=== PATIENT | male | born 1955 | race Caucasian/White ===

== ENCOUNTER 2017-01-05 20:22 | Observation (INO) | payer OTHER ==
--- NOTE | ~2017-01-05 | CN ---
Consultation Report [facility] [address] [place]. [address] NAME: SENDY JOSE : 53 STATUS : ADM Beatriz PAT#: [id number] AGE: 61 ADM/REG DATE : 01/05/17 MR#: [id number] REPORT SERV DATE: 01/06/17 DICTATED BY: CLEMENTINA DUGAN DATE: 01/06/17 REPORT STATUS : Draft TRANSCRIBED BY: LUCAS DATE: 01/06/17 CARDIOLOGY CONSULT DATE OF CONSULTATION: REFERRING PHYSICIAN: Mrs. Avani Queen, nurse-practitioner with Dr. Peñaloza, Nephrology service. REFERRING REASON: Atrial flutter and elevated troponin. HISTORY OF PRESENT ILLNESS: This is a pleasant 61-year-old white obese gentleman with complex past medical history, well known to Dr. Jair Mejia from [facility] who has actually seen Jona Case, nurse practitioner working with Dr. Mejia on 12/24/2016. He has been admitted to Nephrology Service from the emergency room yesterday for influenza A and atrial flutter which was discovered incidentally by primary care physician in the office. The patient reportedly suffered a respiratory infection and cough 3 weeks ago, was treated with 1 dose of antibiotics. He improved and got some low-grade fever, chills, and was feeling weak again. He decided to see the primary care physician who checked electrocardiogram which revealed atrial flutter, variable AV block with chronic right bundle branch block and heart rate in the 70s. He has been referred to the emergency room and was admitted to the nephrology Service. He was found to have an influenza A. His first troponin was mildly elevated at 0.14. The patient specifically denies any exertional or resting chest pain. He has some mild dyspnea on exertion over the last month but has chronic ischemic cardiomyopathy with EF 37% which was discovered by echocardiogram in October 2016. He is a vasculopath with history of right femoropopliteal bypass surgery by Dr. Gray years ago with right carotid endarterectomy in 2001 and he also has a history of kidney transplant in 2004. The patient has a history of a fall 3 weeks ago on his back when he fell from the back and obtained hematoma in the back. He reportedly recovered well. He denied any syncope or palpitations. He denied lower extremity edema. The dose of Coreg has been recently increased at the [facility] office to 6.25 mg twice a day and has been tolerating it well. His blood pressure reportedly has been stable. The patient is insisting on a dismissal from hospital. This has been also supported by the Nephrology Service while he reportedly is completely asymptomatic now. The 2nd troponin was not obtained. The patient remained hemodynamically stable with systolic blood pressure in the 140s and heart rate in the 60s, on some of the recording looks like atrial fibrillation. No signs of external bleeding. The rest of the review of systems is negative. PAST MEDICAL HISTORY: 1. Ischemic cardiomyopathy with EF declining to 37% by echo in October 2016 with left atrial enlargement, mild aortic valve stenosis, and moderate pulmonary hypertension. 2. Coronary artery disease with history of CABG in 2004. 3. Status post right carotid endarterectomy in 2001. Consultation Report [address] [place]. [address] NAME: SENDY JOSE : 53 STATUS : ADM Beatriz PAT#: [id number] AGE: 61 ADM/REG DATE : 01/05/17 MR#: [id number] REPORT SERV DATE: 01/06/17 DICTATED BY: CLEMENTINA DUGAN DATE: 01/06/17 REPORT STATUS : Draft TRANSCRIBED BY: LUCAS DATE: 01/06/17 4. Chronic left bundle-branch block on electrocardiogram. 5. Tendency to hypotension and bradycardia on a high dose of Coreg and lisinopril, currently off lisinopril. 6. Hypertension. 7. Hyperlipidemia. 8. Diabetes mellitus. 9. History of kidney transplant in 2004. 10.History of peripheral artery disease with right femoropopliteal bypass surgery by Dr. Gray in the past. 11.History of negative nuclear cardiac stress test for ischemia in October 2016. 12.Status post fall 3 weeks ago. 13.Currently influenza A. ALLERGIES: SULFA. HOME MEDICATIONS: Allopurinol 100 mg twice a day; aspirin 325 mg once a day; clonidine 0.3 mg p.r.n. and he is also taking 0.3 mg every 24 hours patch of clonidine; Plavix 75 mg once a day; cyclosporine 100 mg once a day; Vytorin 10/20 mg once a day; iron supplement; Lasix 80 mg once a day; insulin p.r.n.; potassium supplement 20 mEq once a day; Lyrica 75 mg once a day; Requip 1 mg once a day; and Coreg 6.25 mg twice a day. SOCIAL HISTORY: The patient is . He is a senior construction manager. Denies smoking, drinking alcohol, or using street drugs. FAMILY HISTORY: Negative for sudden cardiac or premature coronary artery disease in the family. PHYSICAL EXAMINATION: GENERAL: No acute distress, comfortably sitting on a bed, in no acute distress. VITAL SIGNS: Blood pressure 142/82, heart rate 59 and regular. LUNGS: Decreased breath sounds, bibasilar, but no crackles. ABDOMEN: Obese, distended, nontender. EXTREMITIES: Lower extremities with decreased pedal pulses bilaterally, but no edema. SKIN: There is mild hematoma along his spine in the lumbar spine and the left flank from the fall 3 weeks ago per the patient's report. HEENT: Pupils reactive to light and accommodation. Moist mucosa membrane. NECK: No JVD. Normal carotid upstroke. No carotid bruits. COR: Normal S1, S2. No S3 or S4. No significant rub or murmurs. SKIN: Warm with normal turgor. MUSCULOSKELETAL: No kyphosis. NEURO/PSY: Alert and oriented. Nonfocal. DATA: CBC remarkable for hemoglobin 12 and platelet count 117,000. BUN 62, creatinine 1.7. Troponin 0.14 x 1. Influenza A positive. Brain natriuretic peptide 749. Chest x-ray, status post CABG, no signs of fluid overload. Electrocardiogram revealed atrial flutter 71 Consultation Report [address] [address] NAME: SENDY JOSE : 53 STATUS : ADM Beatriz PAT#: [id number] AGE: 61 ADM/REG DATE : 01/05/17 MR#: [id number] REPORT SERV DATE: 01/06/17 DICTATED BY: CLEMENTINA DUGAN DATE: 01/06/17 REPORT STATUS : Draft TRANSCRIBED BY: LUCAS DATE: 01/06/17 beats per minute with variable AV block, chronic right bundle-branch block. On monitor, he looks like in atrial fibrillation in the 60s. ASSESSMENT AND PLAN: 1. Influenza A. 2. Prolonged respiratory infection recently. 3. Atrial flutter with variable AV block. 4. Chronic kidney disease with remote history of transplant. 5. Ischemic cardiomyopathy. 6. Elevated troponin in the setting of influenza A. Under this picture, the patient denied any chest pain. He denies any chest pain and I do not believe that this is acute coronary syndrome. We will repeat the troponin later today and if this is not more elevated and the patient still insisted to be discharged home which is supported by the Nephrology, then he will need to be on anticoagulation and continue Coreg 6.25 mg twice a day. I do not believe that he will tolerate a higher dose of Coreg. It is rate controlled now. Dr. Peñaloza has been personally talked to. He may be started on Eliquis 2.5 mg twice a day. In this situation, we will stop the Plavix and decrease the dose of aspirin to 81 mg once a day to prevent bleeding. The patient has been encouraged to be careful and walk with a cane in case that he will become unsteady, to prevent any more falls. He does not have any signs of fluid overload on physical exam currently. He will continue current dose of Lasix per Nephrology that I had the opportunity to talk to. Obviously if his troponin will continue to be elevated, we will need to keep him in the hospital until he will recover from influenza A. Of note, he had negative nuclear cardiac stress test in October for ischemia. More unlikely, the troponin leak in the setting of influenza and some demand ischemia. Multiple questions answered. The patient is still insisting to be discharged home. He will follow with Dr. Mejia for possible cardioversion in few weeks in case that he is still in atrial flutter and continued to be on Eliquis. Thank you for the consult. JOSÉ MIGUEL/LUCAS Clementina Dugan M.D. / [id number] CC: Aldo Barry M.D.
--- NOTE | ~2017-01-05 | HP ---
History And Physical [address] [place]. [address] NAME: SENDY BOOTH : 53 STATUS : ADM Beatriz PAT#: [id number] AGE: 61 ADM/REG DATE : 01/05/17 MR#: [id number] REPORT SERV DATE: 01/06/17 DICTATED BY: DATE: REPORT STATUS : Draft TRANSCRIBED BY: MODL DATE: 01/06/17 DATE OF ADMISSION: 01/05/2017 CHIEF COMPLAINT: Cough and atrial fibrillation/flutter. HISTORY OF PRESENT ILLNESS: Mr. Booth is a 61-year-old, white male, who has a history of renal transplant in 2004 at [place], follows with Dr. Lucero. He also has cardiomyopathy with recent decrease in his EF to 35%, followed by Dr. Mejia. He presented to the hospital from primary care provider's office with new onset atrial fibrillation. He had been there to refill a prescription for cough medications as he has had a cough for several weeks and ran out of cough medicine that had been helping, and at the office, he was found to be in atrial fibrillation and therefore, sent to the emergency department. Here, he was found to have influenza A and being in atrial fibrillation, and he was admitted for further evaluation. It is also of note that he had a mild elevation in his troponin at 0.14. He has currently experienced no chest pain, tightness, or pressure. He is taking Tessalon for cough and that is providing relief. No problems with worsening edema. No dysuria or hematuria. PAST MEDICAL HISTORY: Significant vascular disease status post carotid endarterectomy, followed by Dr. Gray; cardiomyopathy; coronary artery disease, bypass; hyperlipidemia; diabetes; gout; anemia; and hypertension. FAMILY MEDICAL HISTORY: No end-stage renal disease, but positive for heart disease, diabetes, hypertension, and anemia. SOCIAL HISTORY: No tobacco, alcohol, or illicit drug use. ALLERGIES: SULFA. MEDICATIONS: Carvedilol, mycophenolate, cyclosporine, clonidine patch, clonidine p.o., allopurinol, Vytorin, Lasix, Plavix, Lyrica, potassium, insulin, vitamin D, aspirin, ferrous sulfate, and Requip. REVIEW OF SYSTEMS: 12-point review of systems was obtained, negative with the exception of that in HPI. PHYSICAL EXAMINATION: VITAL SIGNS: Temp 98.6, blood pressure 142/82, pulse 59, respiratory rate 19, O2 saturation is 93%. GENERAL: This is a pleasant, cooperative, white male. He is awake, alert, and oriented x3. No acute distress. Answers questions appropriately. HEENT: Normocephalic and atraumatic. Conjunctivae clear. Sclerae anicteric. Pupils are equal and round. Oral mucosa is moist. NECK: Supple. Carotids without bruits. Neck veins flat. No lymphadenopathy. LUNGS: Respirations are even and unlabored. Breath sounds clear to auscultation. CARDIOVASCULAR: His heart rate sounds regular to me. I did hear a faint systolic murmur. History And Physical [address] [place]. [address] NAME: SENDY BOOTH : 53 STATUS : ADM Beatriz PAT#: [id number] AGE: 61 ADM/REG DATE : 01/05/17 MR#: [id number] REPORT SERV DATE: 01/06/17 DICTATED BY: DATE: REPORT STATUS : Draft TRANSCRIBED BY: MODL DATE: 01/06/17 No rub or gallop. ABDOMEN: Soft and nontender. Bowel sounds active. No masses. No hepatosplenomegaly. No bruits. Kidney transplant right lower quadrant without any tenderness. No bruit. No CVA tenderness. BACK: Within normal limits. EXTREMITIES: 1+ edema to the feet. SKIN: Warm, dry, and intact to the lower extremities. In the right, he has changes of peripheral vascular disease and significant scarring from his bypasses. NEUROLOGIC: No focal deficits. Mood and affect, pleasant and appropriate. PERTINENT LABS AND X-RAYS: EKG with atrial fibrillation. BNP of 722. Chest x-ray is negative. Influenza A positive. Sodium 144, potassium 4.5, chloride 100, CO2 of 30, BUN of 62, creatinine of 1.7, calcium 8.9, magnesium of 2.7, troponin 0.14. WBCs 5.2, H and H 12 and 38, and platelets 117,000. IMPRESSION: 1. New onset atrial fibrillation. 2. Mild elevation in troponin. 3. Influenza A. 4. Cardiomyopathy with EF 35% in the patient with coronary disease status post bypass. 5. End-stage renal disease, status post transplant in 2004. 6. Diabetes. 7. Accelerated hypertension with clonidine patch off. PLAN: Consult Dr. Mejia. Cardiac enzymes will be drawn. Telemetry. Usual transplant medications. Tamiflu. Replace clonidine patch. Further orders and recommendations pending clinical course. KUN/MODL ADAMARIS Mendez / [id number] CC: ADAMARIS Mendez
[2017-01-05 18:11] LABS: BASOPHILS 0.2 %; BASOPHILS ABSOLUTE 0.01 10/3/uL (0.0-0.16); EOSINOPHILS 0.4 %; EOSINOPHILS ABSOLUTE 0.02 10/3/uL (0.0-0.53); ER CBC TAT 0 Hrs 02 Mins; HEMATOCRIT 38.6 % (40.0-51.0); IMMATURE GRANULOCYTES 0.6 %; IMMATURE GRANULOCYTES ABSOLUTE 0.03 10/3/uL (0.0-0.11); LYMPHOCYTES 13.7 %; LYMPHOCYTES ABSOLUTE 0.71 10/3/uL (0.67-4.30); MEAN CORPUS HGB CONC 31.1 g/dL (32.0-36.0); MEAN CORPUSCULAR HEMOGLOB 30.3 pg (26.0-34.0); MEAN PLATELET VOLUME 11.4 fL (9.2-13.0); MONOCYTES 18.5 %; MONOCYTES ABSOLUTE 0.96 10/3/uL (0.21-1.20); NEUTROPHILS 66.6 %; NEUTROPHILS ABSOLUTE 3.45 10/3/uL (2.02-8.40); RBC DISTRIBUTION WIDTH 16.4 % (12.0-16.0); RED CELL COUNT 3.96 10/6/uL (4.7-6.1); WHITE BLOOD CELLS 5.2 10/3/uL (4.5-10.5)
[2017-01-05 18:13] LABS: MANUAL DIFF NO %; MEAN CORPUSCULAR VOLUME 97.5 fL (80-100); PLATELET COUNT 117 10/3/uL (150-400)
[2017-01-05 18:21] LABS: INTERNATIONAL NORMAL RATI 1.2 UNITS (-); PARTIAL THROMBO TIME 26.6 SEC (22.5-37.2)
[2017-01-05 18:29] LABS: BUN (BLOOD UREA NITROGEN) 62 MG/DL (6-23); CALCIUM, SERUM 8.9 MG/DL (8.5-10.4); CHLORIDE, SERUM 106 MMOL/L (96-112); CO2 (CARBON DIOXIDE) 30 MMOL/L (24-34); CREATININE 1.73 MG/DL (0.70-1.30); GFR AFRICAN AMERICAN 48 ML/MIN (>=60); GFR NON AFRICAN AMERICAN 41 ML/MIN (>=60); GLUCOSE, SERUM 117 MG/DL (60-99); POTASSIUM, SERUM 4.5 MMOL/L (3.5-5.3); SODIUM, SERUM 144 MMOL/L (135-148)
[2017-01-05 18:36] LABS: CHEST PAIN PROFILE TAT 0 Hrs 27 Mins; TROPONIN I 0.14 NG/ML (<0.05)
[~2017-01-05 20:22] MED LIST: ADALAT CC30 MG PO; ALEVE220 MG PO; ASA5GR PO; ASAB PO; CAT3 PO; CATAPRES3 TOP; CYCLOSPORINE100 MG OR; GLUCOTRO10 PO; IRON325 MG PO; L40 PO; LANTUS SC; MYFORTIC360 MG PO; NEORAL100 MG OR; NORV5 PO; NOVOLOG SC; PLAVIX PO; PRIN10 PO; PRIN20 PO; PRIVIGEN PO; VITAMIN D1000 UNI1 PO; VYTORIN 10/20 T1 TAB PO; Z100 PO
[2017-01-05 20:44] LABS: INFLUENZA A SCREEN POSITIVE (NEGATIVE); INFLUENZA B SCREEN NEGATIVE (NEGATIVE)
[2017-01-05] MEDS ORDERED: COREG6 PO (20:49)
[2017-01-05] MEDS ORDERED: MYFORTIC360 MG PO (20:52)
[2017-01-05] MEDS ORDERED: NEORAL100 MG PO (20:52)
[2017-01-05] MEDS ORDERED: CAT3 PO (20:53)
[2017-01-05] MEDS ORDERED: CATAPRES3 TOP (20:53)
[2017-01-05] MEDS ORDERED: VYTORIN 10/20 T1 TAB PO (20:54)
[2017-01-05] MEDS ORDERED: Z100 PO (20:54)
[2017-01-05] MEDS ORDERED: L40 PO ×2 (20:55)
[2017-01-05] MEDS ORDERED: KLOR-CON M2020 MEQ PO (20:57)
[2017-01-05] MEDS ORDERED: LYRICA75 PO (20:57)
[2017-01-05] MEDS ORDERED: PLAVIX PO (20:57)
[2017-01-05] MEDS ORDERED: NOVOLOG SQ (20:58)
[2017-01-05] MEDS ORDERED: ASAB PO (20:59)
[2017-01-05] MEDS ORDERED: FERROUS SULF325 M1 PO (20:59)
[2017-01-05] MEDS ORDERED: VITAMIN D1000 UNI1 PO (20:59)
[2017-01-05] MEDS ORDERED: REQUIP1 PO (21:00)
[2017-01-06 14:41] LABS: BASOPHILS 0.3 %; BASOPHILS ABSOLUTE 0.01 10/3/uL (0.0-0.16); EOSINOPHILS 0.3 %; EOSINOPHILS ABSOLUTE 0.01 10/3/uL (0.0-0.53); HEMATOCRIT 37.1 % (40.0-51.0); HEMOGLOBIN 11.5 g/dL (13.6-17.8); IMMATURE GRANULOCYTES 0.3 %; IMMATURE GRANULOCYTES ABSOLUTE 0.01 10/3/uL (0.0-0.11); LYMPHOCYTES 24.8 %; LYMPHOCYTES ABSOLUTE 0.93 10/3/uL (0.67-4.30); MEAN CORPUSCULAR HEMOGLOB 30.3 pg (26.0-34.0); MEAN CORPUSCULAR VOLUME 97.9 fL (80-100); MEAN PLATELET VOLUME 11.5 fL (9.2-13.0); MONOCYTES ABSOLUTE 0.75 10/3/uL (0.21-1.20); NEUTROPHILS 54.3 %; NEUTROPHILS ABSOLUTE 2.04 10/3/uL (2.02-8.40); PLATELET COUNT 108 10/3/uL (150-400); RBC DISTRIBUTION WIDTH 16.7 % (12.0-16.0); RED CELL COUNT 3.79 10/6/uL (4.7-6.1); WHITE BLOOD CELLS 3.8 10/3/uL (4.5-10.5)
[2017-01-06 14:44] LABS: MANUAL DIFF NO %
[2017-01-06 14:58] LABS: ALBUMIN 3.3 G/DL (3.5-5.0); BUN (BLOOD UREA NITROGEN) 53 MG/DL (6-23); CALCIUM, SERUM 8.8 MG/DL (8.5-10.4); CHLORIDE, SERUM 104 MMOL/L (96-112); CO2 (CARBON DIOXIDE) 29 MMOL/L (24-34); CPK 85 U/L (0-200); CREATININE 1.56 MG/DL (0.70-1.30); GFR AFRICAN AMERICAN 54 ML/MIN (>=60); GFR NON AFRICAN AMERICAN 47 ML/MIN (>=60); GLUCOSE, SERUM 151 MG/DL (60-99); PHOSPHORUS, SERUM 3.4 MG/DL (2.5-4.5); POTASSIUM, SERUM 4.5 MMOL/L (3.5-5.3); SODIUM, SERUM 141 MMOL/L (135-148)
[2017-01-06 14:59] LABS: CK-MB 1.6 NG/ML
[2017-01-06 15:49] LABS: TROPONIN I 0.12 NG/ML (<0.05)
[2017-01-06] MEDS ORDERED: TAMIFLU PO (16:15)
[2017-01-06] MEDS ORDERED: ELIQUIS 2.5 MG2.5 MG PO (16:19)
[2017-04-30] MEDS ORDERED: MYFORTIC360 MG PO (17:53)
[2017-04-30] MEDS ORDERED: NEORAL100 MG PO (17:53)
[2017-04-30] MEDS ORDERED: COREG6 PO (17:53)
[2017-04-30] MEDS ORDERED: CATAPRES3 TOP (17:54)
[2017-04-30] MEDS ORDERED: Z100 PO (17:54)
[2017-04-30] MEDS ORDERED: ZAROX2.5B PO (17:55)
[2017-04-30] MEDS ORDERED: VYTORIN 10/20 T1 TAB PO (17:55)
[2017-04-30] MEDS ORDERED: L80 PO (17:55)
[2017-04-30] MEDS ORDERED: NEUR100 PO (17:56)
[2017-04-30] MEDS ORDERED: KLOR-CON M2020 MEQ PO (17:56)
[2017-04-30] MEDS ORDERED: ELIQUIS 2.5 MG2.5 MG PO (17:56)
[2017-04-30] MEDS ORDERED: LANTUS SC (17:57)
[2017-04-30] MEDS ORDERED: NOVOLOG SC (17:58)
[2017-04-30] MEDS ORDERED: VITAMIN D1000 UNI1 PO (17:59)
[2017-04-30] MEDS ORDERED: HALF81 PO (17:59)
[2017-04-30] MEDS ORDERED: NEURX-TF PO (18:00)
[2017-04-30] MEDS ORDERED: FERROUS SULF325 M1 PO (18:00)
[2017-04-30] MEDS ORDERED: REQUIP1 PO (18:00)
[2017-04-30] MEDS ORDERED: GLUCAGON IM (18:00)
[2017-05-10] MEDS ORDERED: DURICEF PO (10:07)
[2017-05-10] MEDS ORDERED: CEFAZ1 IM (10:09)
[2017-05-10] MEDS ORDERED: VANCO1P IV (19:57)
[2017-05-17] MEDS ORDERED: HALF81 PO (00:49)
[2017-05-17] MEDS ORDERED: VITAMIN D1000 UNI1 PO (00:49)
[2017-05-17] MEDS ORDERED: CAT1 PO (00:50)
[2017-05-17] MEDS ORDERED: DURICEF PO (00:51)
[2017-05-17] MEDS ORDERED: COREG6 PO (00:51)
[2017-05-17] MEDS ORDERED: NEUR300 PO (00:51)
[2017-05-17] MEDS ORDERED: REQUIP1 PO (00:51)
[2017-05-17] MEDS ORDERED: L80 PO (01:00)
[2017-05-17] MEDS ORDERED: CEFAZ1 IV (01:00)
[2017-05-17] MEDS ORDERED: NEORAL100 MG PO (01:02)
[2017-05-17] MEDS ORDERED: ELIQUIS 2.5 MG2.5 MG PO (01:02)
[2017-05-17] MEDS ORDERED: MYFORTIC360 MG PO (01:03)
[2017-05-17] MEDS ORDERED: KDUR20 PO (01:06)
[2017-05-17] MEDS ORDERED: VYTORIN 10/20 T1 TAB PO (01:07)
[2017-05-17] MEDS ORDERED: GLUCAGON IM (01:07)
[2017-05-17] MEDS ORDERED: NOVOLOG SC (01:08)
[2017-05-17] MEDS ORDERED: LANTUS SC (01:09)
[2017-05-17] MEDS ORDERED: FERROUS SULF325 M1 PO (01:10)
[2017-05-17] MEDS ORDERED: Z100 PO (01:11)
[2017-05-17] MEDS ORDERED: NEURX-TF PO (01:12)
== END 2017-01-06 17:11 | disposition home or self-care (01) ==
LOC: ER 20:22 → 2SO 22:18
PROVIDERS: Emergency Medicine; Nurse Practitioner
DX: I48.91 Unspecified atrial fibrillation (principal); J11.1 Influenza due to unidentified influenza virus with other respiratory manifestations; I48.92 Unspecified atrial flutter; I50.22 Chronic systolic (congestive) heart failure; I13.2 Hypertensive heart and chronic kidney disease with heart failure and with stage 5 chronic kidney disease, or end stage renal disease; I25.10 Atherosclerotic heart disease of native coronary artery without angina pectoris; E11.22 Type 2 diabetes mellitus with diabetic chronic kidney disease; I65.29 Occlusion and stenosis of unspecified carotid artery; I42.9 Cardiomyopathy, unspecified; N18.6 End stage renal disease; I73.9 Peripheral vascular disease, unspecified; E78.2 Mixed hyperlipidemia; N19 Unspecified kidney failure; Z79.82 Long term (current) use of aspirin; Z79.899 Other long term (current) drug therapy; Z79.4 Long term (current) use of insulin; Z79.02 Long term (current) use of antithrombotics/antiplatelets; Z95.1 Presence of aortocoronary bypass graft; Z88.2 Allergy status to sulfonamides
CPT/HCPCS: 71020; 80048; 80069; 82550; 82553; 82962; 83735; 83880; 84484; 85025; 85610; 85730; 87804; 93005; 96374; 99285; A9270-GY; G0378; J7502

== ENCOUNTER 2017-01-19 20:08 | Inpatient (IN) | payer OTHER ==
--- NOTE | ~2017-01-19 | HP ---
History And Physical [address] [place]. [address] NAME: SENDY BOOTH : 53 STATUS : ADM Beatriz PAT#: [id number] AGE: 61 ADM/REG DATE : 01/19/17 MR#: [id number] REPORT SERV DATE: 01/20/17 DICTATED BY: JOSE LOBO DATE: 01/19/17 REPORT STATUS : Draft TRANSCRIBED BY: MODL DATE: 01/19/17 DATE OF ADMISSION: 01/19/2017 CHIEF COMPLAINT: Shortness of breath and dyspnea with exertion. HISTORY OF PRESENT ILLNESS: This is a 61-year-old male with a history of atrial flutter on chronic anticoagulation, insulin-dependent diabetes mellitus, peripheral vascular disease with carotid endarterectomy, and renal transplant done at [place] many years ago, on immunosuppressive therapy, who presents to the emergency room at [facility] with the above-mentioned complaint. History is obtained from the patient and reviewing data available on the [employer] system. According to Mr. Booth, his symptoms have been ongoing for about two weeks or so, perhaps more, but in the last week or so, thinks it has become very serious. He states he is unable to perform activities of daily living. He cannot even cross the room without being profoundly short of breath. He says his heart rate goes down to 30 beats per minute or less and he finally decided to come to the emergency room today to be evaluated. In the emergency room, initial workup including an EKG revealed atrial flutter with variable block with a heart rate of 40 beats per minute. He also had acute kidney injury which was concerning given his history of a kidney transplant. He was seen by Dr. Hollingsworth from the Cardiology team in the emergency room and recommendations were made by him. I did get to speak to him. Hospitalist Service was asked to admit Mr. Booth due to his worsening kidney issues as well. At the time of my evaluation, he denied any chest pain or palpitations. He does not have any orthopnea. He denied any cough, hemoptysis, night sweats, or weight loss. He has not had any recent falls or loss of consciousness, although he has had dizziness with the symptoms. He has not had any fevers or chills, nausea, vomiting, diarrhea, hematemesis, hematochezia, or hematuria. No other history of recent travel or exposures other than those mentioned above. PAST MEDICAL HISTORY: Significant for history of kidney transplantation done at [facility], on immunosuppressive therapy, followed by Nephrology team including Dr. Lucero and Dr. Macedo. He also has a history of peripheral vascular disease with carotid endarterectomy, history of atrial flutter followed by [facility], cardiomyopathy, coronary artery disease with history of CABG, essential hypertension, and gout. SOCIAL HISTORY: He does not smoke, drink, or use recreational drugs. FAMILY HISTORY: Noncontributory. MEDICATIONS: At home were reviewed by me in the chart today and reordered by me. REVIEW OF SYSTEMS: As in history of present illness. All other systems were reviewed in detail and are quite History And Physical [address] [address] NAME: SENDY BOOTH : 53 STATUS : ADM Beatriz PAT#: [id number] AGE: 61 ADM/REG DATE : 01/19/17 MR#: [id number] REPORT SERV DATE: 01/20/17 DICTATED BY: JOSE LOBO DATE: 01/19/17 REPORT STATUS : Draft TRANSCRIBED BY: LUCAS DATE: 01/19/17 unremarkable. PHYSICAL EXAMINATION: GENERAL: This is a pleasant 61-year-old, not in any acute distress. HEENT: His head is atraumatic, normocephalic. He is alert, awake, oriented to time, place, and person. Pupils are equal, reacting to light and accommodating. External ocular muscles are intact. Membranes are moist and pink. Sclerae are nonicteric. NECK: Supple with no jugular venous distention, lymphadenopathy, or thyromegaly. LUNGS: Clear to auscultation with no wheezes, rubs, or crackles. HEART: Heart sounds were regular with no murmurs, rubs, or gallops. ABDOMEN: Soft, nontender. Bowel sounds are present. EXTREMITIES: Showed bilateral pitting lower extremity edema without any cyanosis or clubbing. NEUROLOGIC: Grossly intact. No focal sensory or motor deficits. Higher functions appeared intact. VITAL SIGNS: Today showed a temperature of 98.2, pulse 46, respirations 16 a minute, blood pressure was 176/55, oxygen saturations were 98%, breathing 2 L of oxygen via nasal cannula. LABORATORY DATA: Reviewed on the [employer] system showed a sodium of 143, potassium 4.9, chloride 103, and CO2 of 32. BUN was 84 with a creatinine of 2.28, this has gone up from 62 and 1.73 on 01/06/2017. His blood glucose was 144 today. His troponin today was 0.04, the last one was 0.12 on 01/06/2017. CBC showed a normal white blood cell count of 5200, hemoglobin was 11, hematocrit 36.1, and platelet count was 124,000, on 01/06/2017, it was 108,000. His prothrombin time today was 16.2 with an INR of 1.3. Urinalysis was not performed today. Films of the chest x-ray were reviewed by me on the PACS today and interpreted by me. Today's films were compared to prior films available as well. Per my interpretation, there is normal bony architecture with prior sternotomy. There is cardiomegaly. Lung camp did not show any infiltrates or effusions. A 12-lead EKG done in the emergency room was reviewed and interpreted by me. There is atrial flutter with AV block. Heart rate of 40 per minute. IMPRESSION: 1. Symptomatic bradycardia. 2. Acute kidney injury. 3. Status post kidney transplantation. 4. Atrial flutter with AV block and symptomatic bradycardia. 5. Insulin-dependent diabetes mellitus. 6. Peripheral vascular disease with carotid endarterectomy. 7. Coronary artery disease with coronary artery bypass graft. 8. Essential hypertension. 9. Gout. PLAN: We will admit Mr. Booth to the Hospitalist Service with cardiac telemetry for a 24- hour observation period. We will hold his beta-rekha and clonidine at this time as advised by Dr. Hollingsworth. We will use clonidine carefully for systolic greater than 160 mmHg on an as-needed basis. We will go ahead and consult [facility] to see him in the morning. We will be continuing his anticoagulation as well per Dr. Hollingsworth. Meanwhile, we will go History And Physical [address] [place]. [address] NAME: SENDY BOOTH : 53 STATUS : ADM Beatriz PAT#: [id number] AGE: 61 ADM/REG DATE : 01/19/17 MR#: [id number] REPORT SERV DATE: 01/20/17 DICTATED BY: JOSE LOBO DATE: 01/19/17 REPORT STATUS : Draft TRANSCRIBED BY: LUCAS DATE: 01/19/17 ahead and hold his diuretics, his NSAIDs, allopurinol, and other nephrotoxic drugs that he is on for acute kidney injury and consult Nephrology Service to see him in the morning. We will start him on blood sugar control with NovoLog given subcutaneously per sliding scale as well. I have discussed the above plans with the patient, his questions were answered, and he is agreeable to the above recommendations. Hospitalist Service will be following Mr. Booth while he is here. /LUCAS Jose Lobo M.D. / [id number] CC: MD Stephan Shane Jr., M.D.
--- NOTE | ~2017-01-19 | CN ---
Consultation Report [facility] [address] [place]. [address] NAME: SENDY BOOTH : 53 STATUS : ADM Beatriz PAT#: [id number] AGE: 61 ADM/REG DATE : 01/19/17 MR#: [id number] REPORT SERV DATE: 01/20/17 DICTATED BY: JAIR CARCAMO DATE: 01/19/17 REPORT STATUS : Draft TRANSCRIBED BY: LUCAS DATE: 01/19/17 CARDIOLOGY CONSULTATION. DATE OF CONSULTATION: REASON FOR CONSULTATION: Bradycardia. HISTORY OF PRESENT ILLNESS: Mr. Booth is a 61-year-old man with a history of coronary artery disease, nonischemic cardiomyopathy, was admitted a few weeks ago with influenza and found to have atrial flutter, he was put on anticoagulants and discharged home. He reports he has had problems with weakness and lightheadedness with exertion over the past several weeks. He reports his heart rates at home have been in the 30s and 40s. He contacted the office and was sent to the emergency room. He has had no syncope. He has had rare chest discomfort. He has had no edema or fevers. REVIEW OF SYSTEMS: As per the history of present illness. Ten other systems are negative. PAST MEDICAL HISTORY: 1. Atrial flutter, recent onset. 2. Ischemic cardiomyopathy. Recent LVEF 37%. 3. Peripheral vascular disease, history of femoral-popliteal bypass and an endarterectomy. 4. Kidney transplant in 2004. 5. Coronary artery disease, bypass in 2004. 6. Left bundle-branch block. 7. Labile blood pressures. FAMILY HISTORY: Positive for hypertension, but no early heart disease. SOCIAL HISTORY: The patient is . No tobacco. No alcohol. HOME MEDICATIONS: Complete list is pending, but the patient is on Eliquis at home. He is on carvedilol 6.25 mg p.o. b.i.d. and clonidine, dose is pending. PHYSICAL EXAMINATION: VITAL SIGNS: Heart rates 48 and blood pressure 153/96. GENERAL: The patient is a pleasant white male in no apparent distress. HEENT: Conjunctivae are anicteric, no xanthelasma, lips without cyanosis. NECK: Supple, normal JVP, carotids +2 without bruit. LUNGS: Clear to auscultation bilaterally, no wheezes, rales or rhonchi. CARDIOVASCULAR: Irregular. Bradycardic. Normal S1 and S2. 1 to 2/6 systolic murmur. ABDOMEN: Soft, nontender, nondistended, with normal bowel sounds. No hepatomegaly. EXTREMITIES: No clubbing, cyanosis or edema. NEURO/PSYCH: Alert and oriented to person, place and time. No obvious neurologic deficits. Consultation Report [facility] [address] [place]. [address] NAME: SENDY BOOTH : 53 STATUS : ADM Beatriz PAT#: [id number] AGE: 61 ADM/REG DATE : 01/19/17 MR#: [id number] REPORT SERV DATE: 01/20/17 DICTATED BY: JAIR CARCAMO DATE: 01/19/17 REPORT STATUS : Draft TRANSCRIBED BY: LUCAS DATE: 01/19/17 Mood and affect normal. DATA: Creatinine is 2.28. Hematocrit 36.1. Troponin 0.04. BNP level is 319. IMPRESSION: 1. Atrial flutter with slow response. 2. Bradycardia. 3. Acute kidney injury. 4. History of renal transplant. 5. Coronary artery disease, history of bypass surgery in 2004. 6. Peripheral vascular disease, history of endarterectomy, and femoral-popliteal bypass. 7. Left bundle-branch block with a history of first-degree atrioventricular block previously. 8. Hypertension with labile blood pressures. 9. Diabetes. 10.Recent ischemic cardiomyopathy with decreased EF of 37%. RECOMMENDATIONS: Mr. Booth presents with some bradycardia and dizziness. Symptoms are mild and I recommend holding his Coreg and monitoring his heart rate. He does have a lot of conduction disease and I wonder if this may be catching up with him. His renal function has worsened. I think we will just hold his Coreg and monitor him. If he has persistent bradycardia off those medicines he may need pacing support. He also does have decreased EF and occasional chest discomfort. He is very reluctant to consider any coronary evaluation given his renal function. WO/MODL Jair Carcamo M.D., Ph.D, F.A.C.C. / [id number] CC: MD Stephan Shane Jr., M.D.
--- NOTE | ~2017-01-19 | CN ---
Consultation Report [facility] [address] [place]. [address] NAME: SENDY BOOTH : 53 STATUS : ADM Beatriz PAT#: [id number] AGE: 61 ADM/REG DATE : 01/19/17 MR#: [id number] REPORT SERV DATE: 01/20/17 DICTATED BY: DATE: REPORT STATUS : Draft TRANSCRIBED BY: MODJuancarlos DATE: 01/20/17 CONSULTATION DATE OF CONSULTATION: CHIEF COMPLAINT: Transplant patient. HISTORY OF PRESENT ILLNESS: Mr. Booth is a very pleasant, 61-year-old white male, who has a history of transplant in 2004 at [facility] follows with Dr. Macedo, and he also has cardiomyopathy with EF of 35% to 40%, followed by Dr. Mejia. Most recently, he was admitted with influenza, also during that hospitalization, he had atrial fibrillation which was new in onset. He states that he has continued to have worsening shortness of breath where he can barely walk across the floor, worsening problems with edema, and then yesterday heart rate was getting to 30s to 40sm and therefore, he presented to the emergency department. Denies any fevers, chills, cough, but shortness breath dyspnea on exertion is quite significant. No chest pain, tightness, or pressure. No decrease in urination. He has had to maintain 120 mg of Lasix in the morning and 80 mg in the evening and his edema is still not well controlled. PAST MEDICAL HISTORY: Recent flu and new onset of atrial fibrillation two weeks ago, renal transplant in 2004 at [facility] followed by Dr. Macedo, peripheral vascular disease, with history of carotid endarterectomy, cardiomyopathy with EF of 35% to 40%, coronary artery disease, hyperlipidemia, diabetes, gout, anemia, and hypertension. FAMILY MEDICAL HISTORY: No end-stage renal disease. Positive for heart disease, diabetes, hypertension, and anemia. SOCIAL HISTORY: He is , lives with . No tobacco, alcohol, or illicit drug use. ALLERGIES: SULFA. HOME MEDICATIONS: He had been taking Aleve, he states he has taken about 3 in the last week, allopurinol, Eliquis, aspirin, Tessalon, Coreg, vitamin D, Catapres pill and patch, Neoral, Vytorin, ferrous sulfate, Lasix, Neurontin, NovoLog, Lantus, Myfortic, naproxen, Klor-Con, and Requip. REVIEW OF SYSTEMS: A 12-point review of systems was obtained, negative with the exception that in HPI. PHYSICAL EXAMINATION: VITAL SIGNS: Temperature 97.7, blood pressure 178/79, pulse 61, respiratory rate 16, O2 saturation is 97%. GENERAL: This is a pleasant, cooperative, white male. He is awake, alert, oriented, sitting up on side of bed, in no acute distress. Answers questions appropriately. Consultation Report [facility] [address] [place]. [address] NAME: SENDY BOOTH : 53 STATUS : ADM Beatriz PAT#: [id number] AGE: 61 ADM/REG DATE : 01/19/17 MR#: [id number] REPORT SERV DATE: 01/20/17 DICTATED BY: DATE: REPORT STATUS : Draft TRANSCRIBED BY: LUCAS DATE: 01/20/17 HEENT: Normocephalic and atraumatic. Conjunctivae clear. Sclerae anicteric. Pupils are equal and round. Oral mucosa is moist. NECK: Supple. Carotids are without bruits. Neck veins flat. No lymphadenopathy. LUNGS: Respirations even and unlabored. Breath sounds clear to auscultation. HEART: Rate is regular. He has a faint murmur. No rub or gallop. ABDOMEN: Obese, soft, and nontender. No tenderness over transplant kidney to the right and no CVA tenderness. BACK: Within normal limits. EXTREMITIES: With 1+ pitting edema bilaterally. SKIN: No unusual rash or skin lesions. NEURO: No focal deficits. Mood and affect, pleasant appropriate. PERTINENT LABS AND X-RAYS: His EF of today on an echo done was 35% to 40%, no significant valvular disease was noted. Sodium 144, potassium 4.4, chloride 104, CO2 28, BUN of 83, creatinine of 2, magnesium 2.9, troponin 0.05, phosphorus 4.9, TSH 2.9. Chest x-ray is read and is negative, but when I look at it I see pulmonary vascular congestion. WBCs 5, H and H 11 and 36, and platelets 124,000. IMPRESSION: 1. Chronic kidney disease stage 3 in setting of renal transplant in 2004, baseline creatinine 1.6 to 2. 2. Bradycardia. 3. Shortness of breath. 4. Coronary artery disease with cardiomyopathy and an EF of 35% to 40%. 5. Atrial fibrillation, recent diagnosis. 6. Diabetes. 7. Hypertension. PLAN: Creatinine is down from 2.2 to 2 today, baseline being 1.6-2, suspect related to his bradycardia, and an increase diuretic doses recently. We will give him some IV diuretic, follow labs, I's and O's. Cardiology is following to be considered for a defibrillator pacemaker placement. We will diurese, follow labs, and follow along with you. Thank you for the consultation. KUN/LUCAS ADAAMRIS Mendez / [id number] CC: Consultation Report [address] [address] NAME: SENDY BOOTH : 53 STATUS : ADM Beatriz PAT#: [id number] AGE: 61 ADM/REG DATE : 01/19/17 MR#: [id number] REPORT SERV DATE: 01/20/17 DICTATED BY: DATE: REPORT STATUS : Draft TRANSCRIBED BY: LUCAS DATE: 01/20/17 MD Stephan Shane Jr., M.D.
--- NOTE | ~2017-01-19 | TEE ---
Transesophageal Echocardiogram [facility] [address] [place]. [address] NAME: SENDY JOSE : 53 STATUS : DIS Beatriz PAT#: [id number] AGE: 61 ADM/REG DATE : 01/19/17 MR#: [id number] REPORT SERV DATE: 01/24/17 DICTATED BY: JAIR MEJIA DATE: 01/21/17 REPORT STATUS : Draft TRANSCRIBED BY: MODJuancarlos DATE: 01/21/17 TRANSESOPHAGEAL ECHOCARDIOGRAM REQUESTED BY: Jair Mejia MD INDICATION: Atrial flutter. PROCEDURE DESCRIPTION: After informed consent, the patient was sedated with propofol by the Anesthesia Department. The procedure was performed as a preoperative transesophageal echocardiogram before atrial flutter ablation. The transesophageal probe was inserted on the first attempt. There were no immediate complications. FINDINGS: 2D: 1. The aortic valve is tricuspid, but mildly calcified with mildly restricted leaflet mobility. 2. There is no evidence of left atrial appendage thrombus. 3. Left atrial size is moderately enlarged. 4. Left ventricular systolic function is mild to moderately decreased, EF 40%. 5. There is no evidence of pericardial effusion. 6. The mitral valve is structurally normal. 7. The ascending aorta is normal in size. 8. Right-sided chambers are normal in size. 9. The tricuspid valve appears structurally normal. 10.The right atrium is normal in size. DOPPLER: Pulse wave Doppler in the left atrial appendage is less than 40 cm/second. COLOR FLOW: There is mild aortic, mitral, and tricuspid regurgitation. CONCLUSION: NO EVIDENCE OF LEFT ATRIAL APPENDAGE THROMBUS. ROWAN/LUCAS Jair Mejia M.D. / [id number] CC: MD Stephan Shane Jr., M.D.
--- NOTE | ~2017-01-19 | DS ---
Discharge Summary [facility] [id number] [place]. [address] NAME: SENDY JOSE : 53 STATUS : DIS Beatriz PAT#: [id number] AGE: 61 ADM/REG DATE : 01/19/17 MR#: [id number] REPORT SERV DATE: 01/23/17 DICTATED BY: DATE: REPORT STATUS : Draft TRANSCRIBED BY: MODL DATE: 01/22/17 ADMISSION DATE: 01/19/2017 DISCHARGE DATE: 01/22/2017 DISCHARGE DIAGNOSES: 1. Atrial flutter. 2. Bradycardia. 3. Chronic kidney disease, stage 3. 4. Diabetes mellitus type 2. 5. Cardiomyopathy. 6. Gout. 7. Hypertension. 8. Peripheral artery disease. 9. History of coronary artery bypass graft. 10.History of renal transplant. CONSULTATIONS: 1. Cardiology, Dr. Jair Hollingsworth M.D., Ph.D, F.A.C.C. 2. Renal, ADAMARIS Mendez. PROCEDURES AND IMAGIN. 01/19/2017, portable chest x-ray showed cardiomegaly. CABG. No acute cardiopulmonary abnormality. 2. 01/21/2017, ablation. HOSPITAL COURSE: This is a 61-year-old male with a history of atrial flutter on chronic anticoagulation with Eliquis, insulin-dependent diabetes mellitus, peripheral vascular disease, and history of renal transplant. Please see admission H and P by Dr. Jose Ellington on 01/19/2017. The patient was also seen by Dr. Hollingsworth, Cardiology, on 01/20/2017 due to his recent onset of atrial flutter with slow response. The patient did have a subsequent successful ablation by Dr. Jair Mejia on 01/21/2017. The patient has dramatically improved since ablation and exhibits no shortness of breath or dizziness. PHYSICAL EXAMINATION: VITAL SIGNS: Blood pressure 148/80, O2 saturation 98% on room air, temperature 98.1, respirations 18, heart rate is 69. HEENT: Head is atraumatic, normocephalic. Pupils are equal, round, and reactive to light and accommodation. Sclerae are clear, nonicteric. NECK: Supple with no obvious thyromegaly or lymphadenopathy. Neck veins are flat. CARDIAC: Normal S1 and S2 with a systolic murmur. LUNGS: Lungs are clear to auscultation with normal respiratory effort. GASTROINTESTINAL: Abdomen is soft and nontender with active bowel sounds in all four quadrants. Normal bowel habitus. No palpable organomegaly. EXTREMITIES: The patient has significant lower extremity edema, left greater than right, nonpitting, to bilateral knees. Dorsalis pedis and posterior tibial pulses are present bilaterally. No significant clubbing or cyanosis. Discharge Summary [address] [place]. [address] NAME: SENDY JOSE : 53 STATUS : DIS Beatriz PAT#: [id number] AGE: 61 ADM/REG DATE : 01/19/17 MR#: [id number] REPORT SERV DATE: 01/23/17 DICTATED BY: DATE: REPORT STATUS : Draft TRANSCRIBED BY: LUCAS DATE: 01/22/17 MUSCULOSKELETAL: Moves all extremities x4. He is ambulatory without assistance. SKIN: Skin is warm and dry with normal color and turgor. NEUROPSYCH: The patient is alert and oriented x4, pleasant, and cooperative. Cranial nerves 2 through 12 are grossly intact. DISCHARGE MEDICATIONS: Eliquis 2.5 mg twice daily, aspirin 81 mg daily, Aleve 220 mg every 12 hours as needed for pain, Coreg 6.25 mg twice daily, cyclosporin 100 mg daily, vitamin D 1000 units daily, Vytorin 10/20 one tablet at bedtime, Lasix 120 mg in the morning and 80 mg at bedtime, Neurontin 100 mg at bedtime, Lantus 20 units at bedtime, NovoLog sliding scale, Requip 1 mg at bedtime, clonidine 0.3 mg transdermal patch every seven days, clonidine 0.3 mg p.r.n. daily for systolic blood pressure greater than 180, Myfortic 720 mg twice daily, allopurinol 100 mg twice daily, Klor-Con 20 mEq daily, ferrous sulfate 325 mg daily, Tessalon Perles three times daily as needed for cough. ALLERGIES: THE PATIENT IS ALLERGIC TO SULFA DUE TO INTERACTION WITH HIS TRANSPLANT MEDICATIONS. DISCHARGE INSTRUCTIONS: The patient is to follow up with his PCP in two weeks, [facility], on this coming or Tuesday and Dr. Jair Mejia on 01/31/[address] Mendoza Andrews on 03/07/2017 at 0845 hours. Approximately 40 minutes have been spent coordinating discharge care of this patient, including [id number] encounter with the patient and summarization of the discharge. MEET/MODL Aster Schmidt NP / [id number] CC: MD Stephan Shane Jr., M.D.
[~2017-01-19 20:08] MED LIST changes: +COREG6 PO; +ELIQUIS 2.5 MG2.5 MG PO; +FERROUS SULF325 M1 PO; +KLOR-CON M2020 MEQ PO; +LYRICA75 PO; +NEORAL100 MG PO; +NOVOLOG SQ; +REQUIP1 PO; +TAMIFLU PO
[2017-01-19] MEDS ORDERED: NEUR100 PO (20:12)
[2017-01-19 20:16] LABS: BASOPHILS 0.4 %; BASOPHILS ABSOLUTE 0.02 10/3/uL (0.0-0.16); EOSINOPHILS ABSOLUTE 0.05 10/3/uL (0.0-0.53); ER CBC TAT 0 Hrs 11 Mins; HEMATOCRIT 36.1 % (40.0-51.0); IMMATURE GRANULOCYTES 0.4 %; IMMATURE GRANULOCYTES ABSOLUTE 0.02 10/3/uL (0.0-0.11); LYMPHOCYTES 21.8 %; LYMPHOCYTES ABSOLUTE 1.14 10/3/uL (0.67-4.30); MANUAL DIFF NO %; MEAN CORPUS HGB CONC 30.5 g/dL (32.0-36.0); MEAN CORPUSCULAR HEMOGLOB 29.7 pg (26.0-34.0); MEAN CORPUSCULAR VOLUME 97.6 fL (80-100); MEAN PLATELET VOLUME 11.7 fL (9.2-13.0); MONOCYTES 6.1 %; MONOCYTES ABSOLUTE 0.32 10/3/uL (0.21-1.20); NEUTROPHILS 70.3 %; NEUTROPHILS ABSOLUTE 3.68 10/3/uL (2.02-8.40); PLATELET COUNT 124 10/3/uL (150-400); RBC DISTRIBUTION WIDTH 16.3 % (12.0-16.0); WHITE BLOOD CELLS 5.2 10/3/uL (4.5-10.5)
[2017-01-19] MEDS ORDERED: LANTUS SC (20:16)
[2017-01-19] MEDS ORDERED: NOVOLOG SC (20:17)
[2017-01-19] MEDS ORDERED: TESS PO (20:21)
[2017-01-19] MEDS ORDERED: ALEVE220 MG PO (20:23)
[2017-01-19 20:28] LABS: INTERNATIONAL NORMAL RATI 1.3 UNITS (-); PROTIME (NOT ORD) 16.2 SEC (12.0-14.5)
[2017-01-19 20:40] LABS: A/G RATIO 1.3 (0.7-1.9); ALBUMIN 3.7 G/DL (3.5-5.0); ALKALINE PHOSPHATASE 138 U/L (45-117); CALCIUM, SERUM 8.9 MG/DL (8.5-10.4); CHLORIDE, SERUM 103 MMOL/L (96-112); CO2 (CARBON DIOXIDE) 32 MMOL/L (24-34); GFR AFRICAN AMERICAN 34 ML/MIN (>=60); GFR NON AFRICAN AMERICAN 30 ML/MIN (>=60); GLOBULIN 2.9 G/DL (2.5-4.1); GLUCOSE, SERUM 144 MG/DL (60-99); POTASSIUM, SERUM 4.9 MMOL/L (3.5-5.3); SGOT(AST) 13 U/L (5-40); SGPT(ALT) 13 U/L (5-65); SODIUM, SERUM 143 MMOL/L (135-148); TOTAL BILIRUBIN 0.9 MG/DL (0-1.2); TOTAL PROTEIN 6.6 G/DL (6.0-8.5); TROPONIN I 0.04 NG/ML (<0.05)
[2017-01-19 20:42] LABS: BUN (BLOOD UREA NITROGEN) 84 MG/DL (6-23); CREATININE 2.28 MG/DL (0.70-1.30)
[2017-01-20 05:35] LABS: BUN (BLOOD UREA NITROGEN) 83 MG/DL (6-23); CALCIUM, SERUM 8.8 MG/DL (8.5-10.4); CHLORIDE, SERUM 104 MMOL/L (96-112); CO2 (CARBON DIOXIDE) 28 MMOL/L (24-34); CREATININE 2.07 MG/DL (0.70-1.30); GFR AFRICAN AMERICAN 39 ML/MIN (>=60); GFR NON AFRICAN AMERICAN 33 ML/MIN (>=60); POTASSIUM, SERUM 4.4 MMOL/L (3.5-5.3); SODIUM, SERUM 144 MMOL/L (135-148)
[2017-01-20 05:41] LABS: GLUCOSE, SERUM 98 MG/DL (60-99); PHOSPHORUS, SERUM 4.9 MG/DL (2.5-4.5)
[2017-01-20 05:42] LABS: TROPONIN I 0.05 NG/ML (<0.05)
[2017-01-21 06:19] LABS: BASOPHILS 0.2 %; BASOPHILS ABSOLUTE 0.01 10/3/uL (0.0-0.16); EOSINOPHILS 0.8 %; EOSINOPHILS ABSOLUTE 0.04 10/3/uL (0.0-0.53); HEMATOCRIT 37.3 % (40.0-51.0); HEMOGLOBIN 11.7 g/dL (13.6-17.8); IMMATURE GRANULOCYTES 0.2 %; IMMATURE GRANULOCYTES ABSOLUTE 0.01 10/3/uL (0.0-0.11); LYMPHOCYTES 22.1 %; LYMPHOCYTES ABSOLUTE 1.16 10/3/uL (0.67-4.30); MANUAL DIFF NO %; MEAN CORPUS HGB CONC 31.4 g/dL (32.0-36.0); MEAN CORPUSCULAR HEMOGLOB 30.5 pg (26.0-34.0); MEAN CORPUSCULAR VOLUME 97.4 fL (80-100); MONOCYTES 7.6 %; NEUTROPHILS 69.1 %; NEUTROPHILS ABSOLUTE 3.62 10/3/uL (2.02-8.40); PLATELET COUNT 127 10/3/uL (150-400); RED CELL COUNT 3.83 10/6/uL (4.7-6.1); WHITE BLOOD CELLS 5.2 10/3/uL (4.5-10.5)
[2017-01-21 06:28] LABS: INTERNATIONAL NORMAL RATI 1.3 UNITS (-); PROTIME (NOT ORD) 15.6 SEC (12.0-14.5)
[2017-01-21 06:35] LABS: ALBUMIN 3.6 G/DL (3.5-5.0); BUN (BLOOD UREA NITROGEN) 74 MG/DL (6-23); CALCIUM, SERUM 9.2 MG/DL (8.5-10.4); CHLORIDE, SERUM 104 MMOL/L (96-112); CO2 (CARBON DIOXIDE) 29 MMOL/L (24-34); CREATININE 2.06 MG/DL (0.70-1.30); GFR AFRICAN AMERICAN 39 ML/MIN (>=60); GFR NON AFRICAN AMERICAN 34 ML/MIN (>=60); GLUCOSE, SERUM 82 MG/DL (60-99); PHOSPHORUS, SERUM 3.8 MG/DL (2.5-4.5); POTASSIUM, SERUM 4.1 MMOL/L (3.5-5.3); SODIUM, SERUM 144 MMOL/L (135-148)
[2017-01-22 07:32] LABS: ALBUMIN 3.7 G/DL (3.5-5.0); BUN (BLOOD UREA NITROGEN) 81 MG/DL (6-23); CALCIUM, SERUM 9.7 MG/DL (8.5-10.4); CHLORIDE, SERUM 105 MMOL/L (96-112); CO2 (CARBON DIOXIDE) 28 MMOL/L (24-34); CREATININE 2.15 MG/DL (0.70-1.30); GFR AFRICAN AMERICAN 37 ML/MIN (>=60); GFR NON AFRICAN AMERICAN 32 ML/MIN (>=60); GLUCOSE, SERUM 150 MG/DL (60-99); PHOSPHORUS, SERUM 3.6 MG/DL (2.5-4.5); POTASSIUM, SERUM 4.4 MMOL/L (3.5-5.3); SODIUM, SERUM 145 MMOL/L (135-148)
[2017-04-30] MEDS ORDERED: NEORAL100 MG PO (17:53)
[2017-04-30] MEDS ORDERED: MYFORTIC360 MG PO (17:53)
[2017-04-30] MEDS ORDERED: COREG6 PO (17:53)
[2017-04-30] MEDS ORDERED: CATAPRES3 TOP (17:54)
[2017-04-30] MEDS ORDERED: Z100 PO (17:54)
[2017-04-30] MEDS ORDERED: ZAROX2.5B PO (17:55)
[2017-04-30] MEDS ORDERED: VYTORIN 10/20 T1 TAB PO (17:55)
[2017-04-30] MEDS ORDERED: L80 PO (17:55)
[2017-04-30] MEDS ORDERED: NEUR100 PO (17:56)
[2017-04-30] MEDS ORDERED: KLOR-CON M2020 MEQ PO (17:56)
[2017-04-30] MEDS ORDERED: ELIQUIS 2.5 MG2.5 MG PO (17:56)
[2017-04-30] MEDS ORDERED: LANTUS SC (17:57)
[2017-04-30] MEDS ORDERED: NOVOLOG SC (17:58)
[2017-04-30] MEDS ORDERED: HALF81 PO (17:59)
[2017-04-30] MEDS ORDERED: VITAMIN D1000 UNI1 PO (17:59)
[2017-04-30] MEDS ORDERED: GLUCAGON IM (18:00)
[2017-04-30] MEDS ORDERED: NEURX-TF PO (18:00)
[2017-04-30] MEDS ORDERED: REQUIP1 PO (18:00)
[2017-04-30] MEDS ORDERED: FERROUS SULF325 M1 PO (18:00)
[2017-05-10] MEDS ORDERED: DURICEF PO (10:07)
[2017-05-10] MEDS ORDERED: CEFAZ1 IM (10:09)
[2017-05-10] MEDS ORDERED: VANCO1P IV (19:57)
[2017-05-17] MEDS ORDERED: HALF81 PO (00:49)
[2017-05-17] MEDS ORDERED: VITAMIN D1000 UNI1 PO (00:49)
[2017-05-17] MEDS ORDERED: CAT1 PO (00:50)
[2017-05-17] MEDS ORDERED: NEUR300 PO (00:51)
[2017-05-17] MEDS ORDERED: REQUIP1 PO (00:51)
[2017-05-17] MEDS ORDERED: DURICEF PO (00:51)
[2017-05-17] MEDS ORDERED: COREG6 PO (00:51)
[2017-05-17] MEDS ORDERED: L80 PO (01:00)
[2017-05-17] MEDS ORDERED: CEFAZ1 IV (01:00)
[2017-05-17] MEDS ORDERED: ELIQUIS 2.5 MG2.5 MG PO (01:02)
[2017-05-17] MEDS ORDERED: NEORAL100 MG PO (01:02)
[2017-05-17] MEDS ORDERED: MYFORTIC360 MG PO (01:03)
[2017-05-17] MEDS ORDERED: KDUR20 PO (01:06)
[2017-05-17] MEDS ORDERED: GLUCAGON IM (01:07)
[2017-05-17] MEDS ORDERED: VYTORIN 10/20 T1 TAB PO (01:07)
[2017-05-17] MEDS ORDERED: NOVOLOG SC (01:08)
[2017-05-17] MEDS ORDERED: LANTUS SC (01:09)
[2017-05-17] MEDS ORDERED: FERROUS SULF325 M1 PO (01:10)
[2017-05-17] MEDS ORDERED: Z100 PO (01:11)
[2017-05-17] MEDS ORDERED: NEURX-TF PO (01:12)
== END 2017-01-22 14:17 | disposition home or self-care (01) | DRG 274 ==
LOC: ER 20:08 → 2SO 21:54
PROVIDERS: Emergency Medicine; Hospitalist; Nurse Practitioner
PROC: 02583ZZ Destruction of Conduction Mechanism, Percutaneous Approach (ICD-10-PCS; principal; 2017-01-21)
PROC: B246ZZ4 Ultrasonography of Right and Left Heart, Transesophageal (ICD-10-PCS; 2017-01-21)
PROC: 4A023FZ Measurement of Cardiac Rhythm, Percutaneous Approach (ICD-10-PCS; 2017-01-21)
PROC: 4A0234Z Measurement of Cardiac Electrical Activity, Percutaneous Approach (ICD-10-PCS; 2017-01-21)
PROC: 02K83ZZ Map Conduction Mechanism, Percutaneous Approach (ICD-10-PCS; 2017-01-21)
DX: I48.92 Unspecified atrial flutter (principal); E11.22 Type 2 diabetes mellitus with diabetic chronic kidney disease; I42.9 Cardiomyopathy, unspecified; N17.9 Acute kidney failure, unspecified; N18.3 Chronic kidney disease, stage 3 (moderate); Z94.0 Kidney transplant status; R00.1 Bradycardia, unspecified; I73.9 Peripheral vascular disease, unspecified; I25.10 Atherosclerotic heart disease of native coronary artery without angina pectoris; M10.9 Gout, unspecified; I44.7 Left bundle-branch block, unspecified; I44.0 Atrioventricular block, first degree; I12.9 Hypertensive chronic kidney disease with stage 1 through stage 4 chronic kidney disease, or unspecified chronic kidney disease; Z88.2 Allergy status to sulfonamides; Z95.1 Presence of aortocoronary bypass graft; Z82.49 Family history of ischemic heart disease and other diseases of the circulatory system; Z98.890 Other specified postprocedural states
CPT/HCPCS: 71010; 80048; 80053; 80069; 82962; 83735; 83880; 84100; 84443; 84484; 85025; 85610; 93005; 93308; 93312; 93320; 93325; 93613; 93621; 93653; 96374; 96376; 99285; A9270-GY; C1732; C1769; C1781; C1894; G0378; J7502